=== PATIENT | female | born 1935 | race Caucasian/White ===

== ENCOUNTER → 2020-09-23 | Outpatient (CLI) | payer MEDICARE | END | disposition home or self-care (01) | LOC: CFH 12:16 → EDSTATUS 12:30 | PROVIDERS: ATTEND Family Medicine | DX: J84.10 Pulmonary fibrosis, unspecified (principal); R93.89 Abnormal findings on diagnostic imaging of other specified body structures | CPT/HCPCS: 71250 ==

== ENCOUNTER → 2020-11-12 | Outpatient (CLI) | payer MEDICARE ==
[~2020-11-12] MED LIST: REGADENOSON 0.4 MG/5 ML SYRINGE ONE
== END | disposition home or self-care (01) ==
LOC: CFH 12:19
PROVIDERS: ATTEND Internal Medicine Cardiovascular Disease
DX: R06.02 Shortness of breath (principal); R94.31 Abnormal electrocardiogram [ECG] [EKG]
CPT/HCPCS: 78452; 93017; A9502; J2785